=== PATIENT | female | born 1980 | race Hispanic/Latino ===

== ENCOUNTER 2024-07-28 14:11 | Emergency (ER) | payer OTHER, BC ==
[~2024-07-28] VITALS: Ht 165.1 cm; Wt 73.5 kg
[2024-07-28] MEDS: acetaMINOPHEN 325 MG TAB PO STA (14:54)
[2024-07-28] MEDS: ibuPROFEN 600 MG TABLET PO STA (14:54)
--- NOTE | 2024-07-28 15:32 | HMCIMG ---
EXAM: LUMBAR SPINE 2-3VWS REASON: lower back pain. COMPARISON: None. TECHNIQUE: 3 views of the lumbar spine were obtained. FINDINGS: There is normal appearance of the lumbar vertebral bodies. Disc interspace heights are preserved. Alignment is normal. There are no visible fractures. Soft tissues appear unremarkable. IMPRESSION: 1. Normal lumbar spine.
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
[2024-07-28 16:00] VITALS: BP 124/82; PULSE 74; RESP 20; TEMP 98.6; O2SAT 99
== END 2024-07-28 16:02 | disposition home or self-care (01) ==
LOC: EDH 14:11
DX: S39.012A Strain of muscle, fascia and tendon of lower back, initial encounter (principal); Z88.8 Allergy status to other drugs, medicaments and biological substances; Z91.041 Radiographic dye allergy status; V89.2XXA Person injured in unspecified motor-vehicle accident, traffic, initial encounter; Y93.89 Activity, other specified; Y92.488 Other paved roadways as the place of occurrence of the external cause; Y99.8 Other external cause status
CPT/HCPCS: 72100; 99283